=== PATIENT | female | born 1990 | race American Indian/Alaskan Native ===

== ENCOUNTER 2020-10-04 16:13 | Emergency (ER) | payer BC ==
[2020-10-04 16:38] VITALS: BP 126/78
--- NOTE | 2020-10-04 17:26 | XRay Report ---
CERVICAL SPINE 3 VIEWS INDICATION / CLINICAL INFORMATION: MAIN. COMPARISON: None available. FINDINGS: VERTEBRAE: No acute fracture. No significant malalignment. DISC SPACES / FACET JOINTS:No significant abnormality. PARASPINAL SOFT TISSUES:No significant abnormality. ADDITIONAL FINDINGS: None. Signer Name: Zoran Greenberg MD Signed: 10/04/2020 5:21 PM Workstation Name: [id number]
--- NOTE | 2020-10-04 17:27 | XRay Report ---
LUMBAR SPINE 3 VIEWS INDICATION / CLINICAL INFORMATION: MAIN. COMPARISON: None available. FINDINGS: VERTEBRAE: No acute fracture. No significant malalignment. DISC SPACES / FACET JOINTS:No significant abnormality. PARASPINAL SOFT TISSUES:No significant abnormality. ADDITIONAL FINDINGS: None. Signer Name: Zoran Greenberg MD Signed: 10/04/2020 5:22 PM Workstation Name: [id number]
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
== END 2020-10-04 18:13 | disposition home or self-care (01) ==
LOC: ED 16:13
DX: S16.1XXA Strain of muscle, fascia and tendon at neck level, initial encounter (principal); S39.012A Strain of muscle, fascia and tendon of lower back, initial encounter; Z98.890 Other specified postprocedural states; Z79.899 Other long term (current) drug therapy; V49.49XA Driver injured in collision with other motor vehicles in traffic accident, initial encounter; Y93.89 Activity, other specified; Y92.410 Unspecified street and highway as the place of occurrence of the external cause; Y99.8 Other external cause status
CPT/HCPCS: 72040; 72100